=== PATIENT | female | born 1965 ===

== ENCOUNTER 2017-06-06 19:22 | Inpatient (IN) | payer MEDICAID, OTHER ==
[2017-06-06 20:16] LABS: BASO # 0.1 K/uL (0.0-0.2); BASO % 0.8 % (0.0-2.0); EOS # 0.3 K/uL (0.0-0.7); EOS % 3.4 % (0.0-4.0); HEMATOCRIT 45.2 % (34.0-47.0); LYMPH # 2.9 K/uL (1.0-4.3); LYMPH % 32.5 % (20.0-40.0); MEAN CELL VOLUME 87.8 fl (81.0-99.0); MEAN CORPUSCULAR HEMOGLOBIN 29.5 pg (27.0-31.0); MEAN CORPUSCULAR HGB CONC 33.5 g/dL (33.0-37.0); MEAN PLATELET VOLUME 8.8 fl (7.2-11.7); MONO # 0.5 K/uL (0.0-0.8); MONO % 5.5 % (0.0-10.0); NEUT # 5.2 K/uL (1.8-7.0); NEUT % 57.8 % (50.0-75.0); NRBC % 0.1 % (0.0-0.0)
[2017-06-06] MEDS ORDERED: Labetalol 5 mg/ml Inj 20ML IVP STA (20:19)
[2017-06-06 20:24] LABS: URINE BACTERIA RARE (<OCC); URINE BILIRUBIN NEGATIVE (NEGATIVE); URINE BLOOD SMALL (NEGATIVE); URINE COLOR STRAW (YELLOW); URINE GLUCOSE (UA) NEG (Normal); URINE KETONE NEGATIVE (NEGATIVE); URINE LEUKOCYTE ESTERASE SMALL Leu/uL (Negative); URINE PROTEIN 100 mg/dL (NEGATIVE); URINE UROBILINOGEN 0.2-1.0 mg/dL (0.2-1.0); WBC URINE 10 /hpf (0-5)
[2017-06-06 20:27] LABS: RBC URINE 8 /hpf (0-3)
[2017-06-06 20:35] LABS: ALB/GLOB RATIO 1.4 (1.0-2.1); ALKALINE PHOSPHATASE 100 U/L (38-126); ALT/SGPT 34 U/L (9-52); AST/SGOT 27 U/L (14-36); BILIRUBIN,TOTAL 0.4 mg/dl (0.2-1.3); BLOOD UREA NITROGEN 10 mg/dl (7-17); CARBON DIOXIDE 23 mmol/L (22-30); CHLORIDE 106 mmol/L (98-107); GFR AFRICAN-AMERICAN > 60; GLUCOSE,RANDOM 114 mg/dL (65-105); SODIUM 141 mmol/l (132-148); TOTAL PROTEIN 8.4 G/DL (6.3-8.2)
[2017-06-06 20:42] LABS: POTASSIUM 3.1 MMOL/L (3.6-5.0)
--- NOTE | 2017-06-06 21:38 | ED PDOC ---
HPI: Headache Time Seen by Provider: 06/06/17 19:34 Chief Complaint (Nursing): Headache Chief Complaint (Provider): Headache and chest pain History Per: Patient History/Exam Limitations: no limitations Additional Complaint(s): Patient is a 51 y/o female with a past medical history of hypertension and dyslipidemia presenting to the emergency department for a severe headache since yesterday and substernal chest pain that started this afternoon with associated generalized weakness and dizziness. Reports that she ran out of her antihypertensives two weeks ago which were from [facility]. Notes that [place] and has not received any medical care since. Denies associated visual changes, nausea, vomiting, cough, fever, or shortness of breath. PCP: none provided. Past Medical History Reviewed: Historical Data, Nursing Documentation, Vital Signs Vital Signs: Last Vital Signs Temp 98.3 F 06/06/17 19:24 Pulse 99 H 06/06/17 21:17 Resp 20 06/06/17 21:17 BP 161/101 H 06/06/17 21:17 Pulse Ox 100 06/06/17 21:17 - Medical History PMH: HTN - Surgical History Other surgeries: tubal ligation - Family History Family History: States: Unknown Family Hx - Social History Current smoker - smoking cessation education provided: No Ex-Smoker (has not smoked in the last 12 months): No Alcohol: None Drugs: Denies - Home Medications Home Medications: Ambulatory Orders Medication Instructions Recorded Aspirin 81 mg PO DAILY #30 tab.chew 06/07/17 Atorvastatin [Lipitor] 20 mg PO DAILY #30 tab 06/07/17 amLODIPine [Norvasc] 5 mg PO DAILY #30 tab 06/07/17 hydroCHLOROthiazide [Hydrodiuril] 25 mg PO DAILY #30 tab 06/07/17 - Allergies Allergies/Adverse Reactions: Allergies Allergy/AdvReac Type Severity Reaction Status Date / Time No Known Allergies Allergy Verified 06/06/17 19:27 Review of Systems ROS Statement: Except As Marked, All Systems Reviewed And Found Negative Constitutional: Negative for: Fever Eyes: Negative for: Vision Change Cardiovascular: Positive for: Chest Pain (substernal, x1 day) Respiratory: Negative for: Cough, Shortness of Breath Gastrointestinal: Negative for: Nausea, Vomiting Neurological: Positive for: Weakness (generalized), Headache (severe, x2 days), Dizziness Physical Exam - Reviewed Nursing Documentation Reviewed: Yes Vital Signs Reviewed: Yes - Physical Exam Appears: Positive for: Uncomfortable (and hypertensive) Head Exam: Positive for: ATRAUMATIC, NORMAL INSPECTION, NORMOCEPHALIC Skin: Positive for: Normal Color, Warm, Dry Eye Exam: Positive for: EOMI, Normal appearance, PERRL ENT: Positive for: Normal ENT Inspection Neck: Positive for: Normal, Painless ROM, Supple Cardiovascular/Chest: Positive for: Regular Rate, Rhythm. Negative for: Murmur Respiratory: Positive for: Normal Breath Sounds. Negative for: Accessory Muscle Use, Respiratory Distress Gastrointestinal/Abdominal: Positive for: Normal Exam, Soft. Negative for: Tenderness Back: Positive for: Normal Inspection Extremity: Positive for: Normal ROM. Negative for: Pedal Edema Neurologic/Psych: Positive for: Alert, Oriented (x3) - Laboratory Results Result Diagrams: 06/07/17 06:00 06/07/17 06:00 - ECG O2 Sat by Pulse Oximetry: 100 (RA) Pulse Ox Interpretation: Normal - Critical Care Total Time (In Min): 30 Medical Decision Making Medical Decision Making: Time: 20:41 Initial impression: Chest pain and headache in the setting of known hypertension with no compliance with medication. Initial plan: Head CT Scan without contrast EKG ED Urine Dipstick Chest X-Ray Trandate 20 mg IVP Heplock Insertion ED Observation Reevaluation 19:[address] scan reviewed and findings noted: Brain: Ventricles are normal in size and configuration. There is no midline shift. There are no intra-axial or extra-axial mass lesions or areas of hemorrhage. There are no abnormal fluid collections. Bryan-white differentiation is maintained. Ventricles: See above. Bones: Cranial vault is intact. Soft tissues: unremarkable Sinuses: There is no acute sinusitis. Ears and mastoids: Middle ears and mastoids are unremarkable Orbits: Orbital contents are unremarkable. IMPRESSION: No acute intracranial abnormality 20:[address] Martinez for observation status. Scribe Attestation: Documented by Shireen Philip, acting as a scribe for Jeremy Dale MD. Provider Scribe Attestation: All medical record entries made by the Scribe were at my direction and personally dictated by me. I have reviewed the chart and agree that the record accurately reflects my personal performance of the history, physical exam, medical decision making, and the department course for this patient. I have also personally directed, reviewed, and agree with the discharge instructions and disposition. ED OBSERVATION Date of observation admission: 06/06/17 Time of observation admission: 20:45 - Progress Note Progress Note: 06/06/17 22:15 Patient's condition remains stable. Disposition - Clinical Impression Clinical Impression: Chest pain, Headache, HTN (hypertension) - Patient ED Disposition Is Patient to be Admitted: Yes - Disposition Disposition Time: 21:00 Condition: FAIR - Pt Status Changed To: Hospital Disposition Of: Observation - POA Present On Arrival: None
--- NOTE | 2017-06-06 21:38 | CT ---
EXAM: CT Head Without Intravenous Contrast EXAM DATE/TIME: 06/06/2017 8:27 PM CLINICAL HISTORY: 51 years old, female; Pain; Headache; Headache not specified TECHNIQUE: Axial computed tomography images of the head/brain without intravenous contrast. All CT scans at this facility use one or more dose reduction techniques, viz.: automated exposure control; ma/kV adjustment per patient size (including targeted exams where dose is matched to indication; i.e. head); or iterative reconstruction technique. Coronal and sagittal reformatted images were created and reviewed. COMPARISON: There are no prior studies for comparison. FINDINGS: Brain: Ventricles are normal in size and configuration. There is no midline shift. There are no intra-axial or extra-axial mass lesions or areas of hemorrhage. There are no abnormal fluid collections. Bryan-white differentiation is maintained. Ventricles: See above. Bones: Cranial vault is intact. Soft tissues: unremarkable Sinuses: There is no acute sinusitis. Ears and mastoids: Middle ears and mastoids are unremarkable Orbits: Orbital contents are unremarkable. IMPRESSION: No acute intracranial abnormality
[2017-06-06] MEDS ORDERED: Potassium Chloride 20 mEq ER Tab PO ONE ×2 (22:00→22:10)
[2017-06-06] MEDS ORDERED: Labetalol 5 mg/ml Inj 20ML IVP PRN (22:02)
--- NOTE | 2017-06-06 22:37 | CP.PCM.HP ---
History of Present Illness - History of Present Illness History of Present Illness: CC: CP History in [place] via adult son HPI: 51 y/o female with MHx significant for HTN and HLD who comes in with CP. States the CP started yesterday. It is accompanied by some SOB, but no radiation or palpitations; Nothing makes pain better or worse. Patient has never had pain like this previously. Denies f/c/cough/n/v/d. States she does have some headaches. Patient notes she ran out of her BP medications about 2 weeks ago and has not been taking any since then. ROS: 14 systems reviewed, negative other than HPI MHx: HTN, HLD SHx: None Allergies: NKDA Medications: Per med rec Family Hx: Patient unable to provide any family Hx Social Hx: Lives with family, no EtOH, no tobacco Present on Admission - Present on Admission Any Indicators Present on Admission: No Past Patient History - Past Social History Smoking Status: Never Smoked - CARDIAC Hx Hypertension: Yes - PSYCHIATRIC Hx Substance Use: No - SURGICAL HISTORY Hx Hysterectomy: Yes Meds Allergies/Adverse Reactions: Allergies Allergy/AdvReac Type Severity Reaction Status Date / Time No Known Allergies Allergy Verified 06/06/17 19:27 Physical Exam - Constitutional Appears: No Acute Distress - Head Exam Head Exam: ATRAUMATIC, NORMOCEPHALIC - Eye Exam Eye Exam: EOMI, PERRL - ENT Exam ENT Exam: Mucous Membranes Moist - Neck Exam Neck exam: Positive for: Full Rom - Respiratory Exam Respiratory Exam: Clear to Auscultation Bilateral, NORMAL BREATHING PATTERN - Cardiovascular Exam Cardiovascular Exam: REGULAR RHYTHM, +S1, +S2 - GI/Abdominal Exam GI & Abdominal Exam: Normal Bowel Sounds, Soft - Extremities Exam Extremities exam: Positive for: full ROM, normal inspection - Neurological Exam Neurological exam: Alert, CN II-XII Intact, Oriented x3 - Psychiatric Exam Psychiatric exam: Normal Affect, Normal Mood - Skin Skin Exam: Dry, Warm Results - Vital Signs Recent Vital Signs: Last Vital Signs Temp 98.3 F 06/06/17 19:24 Pulse 76 06/06/17 22:05 Resp 20 06/06/17 22:05 BP 139/82 06/06/17 22:05 Pulse Ox 98 06/06/17 22:05 - Labs Result Diagrams: 06/06/17 19:59 06/06/17 19:59 Labs: Laboratory Results - last 24 hr 06/06/17 06/06/17 06/06/17 19:59 19:59 20:00 WBC 9.0 RBC 5.14 Hgb 15.1 Hct 45.2 MCV 87.8 MCH 29.5 MCHC 33.5 RDW 13.0 Plt Count 288 MPV 8.8 Neut % (Auto) 57.8 Lymph % (Auto) 32.5 [place] % (Auto) 5.5 Eos % (Auto) 3.4 Baso % (Auto) 0.8 Neut # 5.2 Lymph # 2.9 [place] # 0.5 Eos # 0.3 Baso # 0.1 Sodium 141 Potassium 3.1 L Chloride 106 Carbon Dioxide 23 Anion Gap 15 BUN 10 Creatinine 0.7 Est GFR ( Amer) > 60 Est GFR (Non-Af Amer) > 60 Random Glucose 114 H Calcium 10.0 Total Bilirubin 0.4 AST 27 ALT 34 Alkaline Phosphatase 100 Troponin I < 0.0120 Total Protein 8.4 H Albumin 4.8 Globulin 3.5 Albumin/Globulin Ratio 1.4 Urine Color Straw Urine Clarity Clear Urine pH 7.0 Ur Specific [place] 1.006 Urine Protein 100 Urine Glucose (UA) Neg Urine Ketones Negative Urine Blood Small Urine Nitrate Negative Urine Bilirubin Negative Urine Urobilinogen 0.2-1.0 Ur Leukocyte Esterase Small Urine RBC (Auto) 8 H Urine Microscopic WBC 10 H Ur Squamous Epith Cells 3 Urine Bacteria Rare - EKG Data EKG Interpreted by: Myself EKG shows normal: Sinus rhythm - EKG Data EKG comments: ?LAD, ?LVT, nonspec TW abnormalities - Imaging and Cardiology Chest x-ray Status: Image reviewed by me (unremarkable) CT scan - head Status: Image reviewed by me (no acute findings), Report reviewed by me Assessment & Plan (1) Chest pain Assessment and Plan: 51 y/o female with HTN and HLD p/w CP and elevated BP in setting of not taking BP medications. 1) CP/HTN/HLD -Tele obs -Serial trops -AM EKG -ASA 325 daily, SLNG PRN -resume home BP and cholesterol medications -Consider Echo and cardiology consult if persistent symptoms or abnormal lab workup 2) Hypo-K -Replete K, check AM labs 3) DVT PPx -- SCDs Status: Acute (2) HTN (hypertension) Status: Acute (3) Hypokalemia Status: Acute (4) DVT prophylaxis Status: Acute
[2017-06-07 07:50] LABS: HEMATOCRIT 43.3 % (34.0-47.0); MEAN CELL VOLUME 88.7 fl (81.0-99.0); MEAN CORPUSCULAR HGB CONC 33.8 g/dL (33.0-37.0); RED CELL DISTRIBUTION WIDTH 13.5 % (11.5-14.5); WHITE BLOOD COUNT 6.6 K/uL (4.8-10.8)
--- NOTE | 2017-06-07 08:22 | CP.PCM.DIS ---
Provider - Provider Date of Admission: 06/07/17 00:01 Attending physician: Margot Martinez MD Hospital Course - Lab Results Lab Results: Most Recent Lab Values WBC 6.6 K/uL (4.8-10.8) 06/07/17 06:00 RBC 4.88 Mil/uL (3.80-5.20) 06/07/17 06:00 Hgb 14.6 g/dL (12.0-16.0) 06/07/17 06:00 Hct 43.3 % (34.0-47.0) 06/07/17 06:00 MCV 88.7 fl (81.0-99.0) 06/07/17 06:00 MCH 30.0 pg (27.0-31.0) 06/07/17 06:00 MCHC 33.8 g/dL (33.0-37.0) 06/07/17 06:00 RDW 13.5 % (11.5-14.5) 06/07/17 06:00 Plt Count 285 K/uL (130-400) 06/07/17 06:00 MPV 8.8 fl (7.2-11.7) 06/06/17 19:59 Neut % (Auto) 57.8 % (50.0-75.0) 06/06/17 19:59 Lymph % (Auto) 32.5 % (20.0-40.0) 06/06/17 19:59 [place] % (Auto) 5.5 % (0.0-10.0) 06/06/17 19:59 Eos % (Auto) 3.4 % (0.0-4.0) 06/06/17 19:59 Baso % (Auto) 0.8 % (0.0-2.0) 06/06/17 19:59 Neut # 5.2 K/uL (1.8-7.0) 06/06/17 19:59 Lymph # 2.9 K/uL (1.0-4.3) 06/06/17 19:59 [place] # 0.5 K/uL (0.0-0.8) 06/06/17 19:59 Eos # 0.3 K/uL (0.0-0.7) 06/06/17 19:59 Baso # 0.1 K/uL (0.0-0.2) 06/06/17 19:59 Sodium 141 mmol/l (132-148) 06/06/17 19:59 Potassium 3.1 MMOL/L (3.6-5.0) L 06/06/17 19:59 Chloride 106 mmol/L (98-107) 06/06/17 19:59 Carbon Dioxide 23 mmol/L (22-30) 06/06/17 19:59 Anion Gap 15 (10-20) 06/06/17 19:59 BUN 10 mg/dl (7-17) 06/06/17 19:59 Creatinine 0.7 mg/dL (0.7-1.2) 06/06/17 19:59 Est GFR ( Amer) > 60 06/06/17 19:59 Est GFR (Non-Af Amer) > 60 06/06/17 19:59 Random Glucose 114 mg/dL (65-105) H 06/06/17 19:59 Calcium 10.0 mg/dL (8.4-10.2) 06/06/17 19:59 Total Bilirubin 0.4 mg/dl (0.2-1.3) 06/06/17 19:59 AST 27 U/L (14-36) 06/06/17 19:59 ALT 34 U/L (9-52) 06/06/17 19:59 Alkaline Phosphatase 100 U/L (38-126) 06/06/17 19:59 Troponin I < 0.0120 ng/mL (0.00-0.120) 06/06/17 19:59 Total Protein 8.4 G/DL (6.3-8.2) H 06/06/17 19:59 Albumin 4.8 g/dL (3.5-5.0) 06/06/17 19:59 Globulin 3.5 gm/dL (2.2-3.9) 06/06/17 19:59 Albumin/Globulin Ratio 1.4 (1.0-2.1) 06/06/17 19:59 Urine Color Straw (YELLOW) 06/06/17 20:00 Urine Clarity Clear (Clear) 06/06/17 20:00 Urine pH 7.0 (5.0-8.0) 06/06/17 20:00 Ur Specific [place] 1.006 (1.003-1.030) 06/06/17 20:00 Urine Protein 100 mg/dL (NEGATIVE) 06/06/17 20:00 Urine Glucose (UA) Neg mg/dL (Normal) 06/06/17 20:00 Urine Ketones Negative mg/dL (NEGATIVE) 06/06/17 20:00 Urine Blood Small (NEGATIVE) 06/06/17 20:00 Urine Nitrate Negative (NEGATIVE) 06/06/17 20:00 Urine Bilirubin Negative (NEGATIVE) 06/06/17 20:00 Urine Urobilinogen 0.2-1.0 mg/dL (0.2-1.0) 06/06/17 20:00 Ur Leukocyte Esterase Small Margie/uL (Negative) 06/06/17 20:00 Urine RBC (Auto) 8 /hpf (0-3) H 06/06/17 20:00 Urine Microscopic WBC 10 /hpf (0-5) H 06/06/17 20:00 Ur Squamous Epith Cells 3 /hpf (0-5) 06/06/17 20:00 Urine Bacteria Rare (<OCC) 06/06/17 20:00 - Hospital Course Hospital Course: 51 y/o female with MHx significant for HTN and HLD who comes in with CP. States the CP started yesterday. It is accompanied by some SOB, but no radiation or palpitations; Nothing makes pain better or worse. Patient has never had pain like this previously. Denies f/c/cough/n/v/d. States she does have some headaches. Patient notes she ran out of her BP medications about 2 weeks ago and has not been taking any since then. 1) CP/HTN/HLD -Tele obs -Serial trops -AM EKG -ASA 325 daily, SLNG PRN -resume home BP and cholesterol medications -Consider Echo and cardiology consult if persistent symptoms or abnormal lab workup 2) Hypo-K -Replete K, check AM labs 3) DVT PPx -- SCDs Status: Acute Discharge Exam - Head Exam Head Exam: ATRAUMATIC, NORMAL INSPECTION, NORMOCEPHALIC Discharge Plan - Follow Up Plan Condition: FAIR Disposition: HOME/ ROUTINE
--- NOTE | 2017-06-07 08:37 | RAD ---
PROCEDURE: CHEST RADIOGRAPH, 1 VIEW HISTORY: admit COMPARISON: None FINDINGS: LUNGS: The lungs are clear. PLEURA: No pneumothorax or pleural fluid seen. CARDIOVASCULAR: Normal. OSSEOUS STRUCTURES: No significant abnormalities. VISUALIZED UPPER ABDOMEN: Normal. OTHER FINDINGS: None. IMPRESSION: No acute findings.
[2017-06-07 09:04] LABS: BLOOD UREA NITROGEN 10 mg/dl (7-17); CALCIUM 9.7 mg/dL (8.4-10.2); CARBON DIOXIDE 26 mmol/L (22-30); CHLORIDE 106 mmol/L (98-107); GFR AFRICAN-AMERICAN > 60; GLUCOSE,RANDOM 104 mg/dL (65-105); POTASSIUM 3.5 MMOL/L (3.6-5.0); SODIUM 144 mmol/l (132-148)
[2017-06-07 09:32] LABS: CHOLESTEROL 188 mg/dL (0-199)
[2017-06-07] MEDS ORDERED: Potassium Chloride 10 mEq ER Tab PO ONE (11:30)
[2017-06-07] MEDS: Enoxaparin 80 mg Syringe SC SCH ×2 (14:09→21:27)
--- NOTE | 2017-06-07 15:50 | CP.PCM.PN ---
Subjective - Date & Time of Evaluation Date of Evaluation: 06/07/17 Time of Evaluation: 10:00 - Subjective Subjective: Patient seen and examined bedside. Feeling better. denies any CP or SOB.Bp better controlled 136/89 , afebrile trop x 2 negative EKG with new T wave inversion to V3 V4 V5-V6 Objective - Vital Signs/Intake and Output Vital Signs (last 24 hours): Temp Pulse Resp BP Pulse Ox 97.8 F 71 18 158/118 H 95 06/07/17 13:00 06/07/17 13:00 06/07/17 13:00 06/07/17 13:00 06/07/17 13:00 - Medications Medications: Current Medications Aspirin (Aspirin) 325 mg PO DAILY [facility] Last Admin: 06/07/17 09:44 Dose: 325 mg Aspirin (Ecotrin) 81 mg PO DAILY [facility] Atorvastatin Calcium (Lipitor) 40 mg PO DAILY [facility] Enoxaparin Sodium (Lovenox) 80 mg SC Q12 [facility] PRN Reason: Protocol Last Admin: 06/07/17 14:09 Dose: 80 mg Hydrochlorothiazide (Hydrodiuril) 25 mg PO DAILY [facility] Last Admin: 06/07/17 09:41 Dose: 25 mg Metoprolol Tartrate (Lopressor) 50 mg PO Q12 [facility] Last Admin: 06/07/17 13:00 Dose: 50 mg Nitroglycerin (Nitrostat Sl Tab) 0.4 mg SL Q5M PRN PRN Reason: chest pain - Labs Labs: 06/07/17 06:00 06/07/17 06:00 - Constitutional Appears: Non-toxic, No Acute Distress - Head Exam Head Exam: ATRAUMATIC, NORMAL INSPECTION, NORMOCEPHALIC - Eye Exam Eye Exam: EOMI, Normal appearance, PERRL Pupil Exam: NORMAL ACCOMODATION - ENT Exam ENT Exam: Mucous Membranes Moist, Normal Exam - Neck Exam Neck Exam: Full ROM, Normal Inspection - Respiratory Exam Respiratory Exam: Clear to Ausculation Bilateral, NORMAL BREATHING PATTERN. absent: Rales, Rhonchi, Wheezes - Cardiovascular Exam Cardiovascular Exam: REGULAR RHYTHM, RRR, +S1, +S2. absent: JVD - GI/Abdominal Exam GI & Abdominal Exam: Soft, Normal Bowel Sounds. absent: Distended, Guarding, Tenderness, Rebound - Rectal Exam Rectal Exam: Deferred - Extremities Exam Extremities Exam: Full ROM, Normal Capillary Refill, Normal Inspection. absent : Calf Tenderness, Pedal Edema - Back Exam Back Exam: NORMAL INSPECTION - Neurological Exam Neurological Exam: Alert, Awake, CN II-XII Intact, Oriented x3 - Psychiatric Exam Psychiatric exam: Normal Affect, Normal Mood - Skin Skin Exam: Dry, Intact, Normal Color, Warm Assessment and Plan - Assessment and Plan (Free Text) Assessment: 51 y/o female with MHx significant for HTN and HLD came in with CP. Patient had run out of her BP meds .Her CP started yesterday, left side, pressure like, is accompanied by some SOB, but no radiation or palpitations. 1. Chest pain r/o ACS continue tele monitoring patient is chest pain free at present trop x 2 negative EKG showed new T wave inversion on lateral leads f/u echo cardiology cosnjulted continue ASA, statin and Beta noah 2.Hypertension uncontrolled not compliant with medications Started HCTZ and Metoprolol 3. Hypo-K replaced check AM labs 4. DVT PPx SCDs
--- NOTE | 2017-06-07 23:27 | CON ---
REASON FOR CONSULTATION: Chest pain. HISTORY OF PRESENT ILLNESS: The history was obtained by a gl accountant. The patient is a 51-year-old female who has history of hypertension, presents because of retrosternal chest pain that is heaviness in nature. The patient is unaware of any history heart attack in the past. SOCIAL HISTORY: The patient is a nonsmoker. MEDICATIONS: Aspirin 325 mg once a day, hydrochlorothiazide 25 mg once a day, Lipitor 10 mg once a day, Norvasc 5 mg once a day, labetalol 20 mg q.6 hours p.r.n. REVIEW OF SYSTEMS: No nausea or vomiting. No fever or chills. PHYSICAL EXAMINATION: GENERAL: The patient is a middle aged female who does not appear to be in any distress. VITAL SIGNS: Blood pressure 136/89, heart rate 62, temperature 97.9, and respirations 18. HEENT: Normocephalic. NECK: No JVD. CHEST: Clear. HEART: S1 and S2 regular. ABDOMEN: Soft. EXTREMITIES: No edema and no calf tenderness. LABORATORY DATA: CBC is entirely within normal limit. SMA-7 is within normal limits except for potassium of 3.5. Two sets of troponins are negative. Lipid profile is within normal limits. EKG initially revealed normal sinus rhythm. Today's EKG revealed sinus rhythm with anterior ischemic T-wave changes. ASSESSMENT: 1. Chest pain, consider underlying coronary artery disease. 2. Hypertension. 3. Mild hypokalemia. RECOMMENDATIONS: Discontinue Norvasc and start Lopressor at 50 mg twice a day, change aspirin to 81 mg once a day, increase Lipitor to 40 mg once a day, start K-Dur 20 mEq once a day, therapeutic subcutaneous Lovenox, and the patient will be scheduled for cardiac catheterization on Friday at [facility] hopefully if the hospital accepts the patient because of her insurance status as it is always a case in my experience with [facility]. Donaldo Navarro MD
[2017-06-08] MEDS: Enoxaparin 80 mg Syringe SC SCH ×2 (01:09→13:14)
[2017-06-08 07:12] LABS: BLOOD UREA NITROGEN 18 mg/dl (7-17); CALCIUM 10.3 mg/dL (8.4-10.2); CARBON DIOXIDE 29 mmol/L (22-30); CHLORIDE 103 mmol/L (98-107); GFR AFRICAN-AMERICAN > 60; GLUCOSE,RANDOM 102 mg/dL (65-105); POTASSIUM 4.1 MMOL/L (3.6-5.0); SODIUM 141 mmol/l (132-148)
--- NOTE | 2017-06-08 10:41 | CP.PCM.PN ---
Subjective - Date & Time of Evaluation Date of Evaluation: 06/08/17 Time of Evaluation: 08:00 - Subjective Subjective: Patient seen and examined bedside.Feeling well. Hemodynamically stable, afebrile. No acute issues overnight Objective - Vital Signs/Intake and Output Vital Signs (last 24 hours): Temp Pulse Resp BP Pulse Ox 97.4 F L 53 L 18 126/82 98 06/08/17 08:12 06/08/17 08:12 06/08/17 08:12 06/08/17 08:12 06/08/17 08:12 - Medications Medications: Current Medications Aspirin (Aspirin) 325 mg PO DAILY [facility] Last Admin: 06/07/17 09:44 Dose: 325 mg Aspirin (Ecotrin) 81 mg PO DAILY [facility] Last Admin: 06/08/17 08:17 Dose: 81 mg Atorvastatin Calcium (Lipitor) 40 mg PO DAILY [facility] Last Admin: 06/08/17 08:17 Dose: 40 mg Enoxaparin Sodium (Lovenox) 80 mg SC Q12@0200,1400 [facility] PRN Reason: Protocol Last Admin: 06/08/17 01:09 Dose: 80 mg Hydrochlorothiazide (Hydrodiuril) 25 mg PO DAILY [facility] Last Admin: 06/08/17 08:17 Dose: 25 mg Metoprolol Tartrate (Lopressor) 50 mg PO Q12@0100,1300 [facility] Last Admin: 06/08/17 01:06 Dose: 50 mg Nitroglycerin (Nitrostat Sl Tab) 0.4 mg SL Q5M PRN PRN Reason: chest pain - Labs Labs: 06/07/17 06:00 06/08/17 05:30 - Constitutional Appears: Non-toxic, No Acute Distress - Head Exam Head Exam: ATRAUMATIC, NORMAL INSPECTION, NORMOCEPHALIC - Eye Exam Eye Exam: EOMI, Normal appearance, PERRL Pupil Exam: NORMAL ACCOMODATION - ENT Exam ENT Exam: Mucous Membranes Moist, Normal Exam - Neck Exam Neck Exam: Full ROM, Normal Inspection - Respiratory Exam Respiratory Exam: Clear to Ausculation Bilateral, NORMAL BREATHING PATTERN. absent: Rales, Rhonchi, Wheezes - Cardiovascular Exam Cardiovascular Exam: REGULAR RHYTHM, RRR, +S1, +S2. absent: JVD - GI/Abdominal Exam GI & Abdominal Exam: Normal Bowel Sounds. absent: Distended, Guarding, Tenderness, Rebound - Rectal Exam Rectal Exam: Deferred - Extremities Exam Extremities Exam: Full ROM, Normal Capillary Refill, Normal Inspection. absent : Calf Tenderness, Pedal Edema - Back Exam Back Exam: NORMAL INSPECTION - Neurological Exam Neurological Exam: Alert, Awake, CN II-XII Intact, Normal Gait, Oriented x3 - Psychiatric Exam Psychiatric exam: Normal Affect, Normal Mood - Skin Skin Exam: Dry, Intact, Normal Color, Warm Assessment and Plan - Assessment and Plan (Free Text) Assessment: 51 y/o female with PMHx significant for HTN and HLD came in with CP. Patient had run out of her BP meds .Her CP started the day before presentation to the left side, pressure like,is accompanied by some SOB, but no radiation or palpitations.In Er her Bp wsa found to be 188 / 140 patient admitted to telemetry for close monitoring and started on ASA and BP meds. here troponins were negative but her EKG showed active T wave inversion in lateral leads. cardiology consulted and planning to schedule patient for cardiac cath 1. Chest pain r/o ACS continue tele monitoring patient is chest pain free at present trop x 3 negative EKG showed new T wave inversion on lateral leads f/u echo report cardiology consulted continue ASA, statin, lovenox therapeutic and Beta noah 2.Hypertension emergency BP 180/140 in presentation uncontrolled not compliant with medications Started HCTZ and Metoprolol 3. Hypo-K replaced check AM labs 4. DVT PPx SCDs lovenox
--- NOTE | 2017-06-08 22:11 | PN ---
DATE: SUBJECTIVE: The patient denied any chest pain. PHYSICAL EXAMINATION: VITAL SIGNS: Blood pressure 112/77, heart rate 60, temperature 98.2 and respirations 14. HEENT: Normocephalic. NECK: No JVD. CHEST: Clear. HEART: S1 and S2 regular. EXTREMITIES: No edema. LABORATORY DATA: SMA-7 is within normal limits except for BUN of 18. Calcium is elevated at 10.3. Three sets of troponin are negative. ASSESSMENT: 1. Chest pain with anterior ischemic ST-T wave changes. 2. Hypertension. 3. Mild hyperkalemia. RECOMMENDATION: Continue aspirin, Lipitor, Lopressor, therapeutic subcutaneous Lovenox. Discontinue hydrochlorothiazide. The patient will be scheduled for cardiac catheterization tomorrow. The place and time will depend on the availability when cath labs open tomorrow morning. Donaldo Navarro MD
[2017-06-09] MEDS: Enoxaparin 80 mg Syringe SC SCH ×2 (01:26→14:51)
[2017-06-09 06:19] LABS: MEAN CELL VOLUME 89.4 fl (81.0-99.0); MEAN CORPUSCULAR HEMOGLOBIN 29.3 pg (27.0-31.0); MEAN CORPUSCULAR HGB CONC 32.8 g/dL (33.0-37.0); RED CELL DISTRIBUTION WIDTH 13.5 % (11.5-14.5); WHITE BLOOD COUNT 7.3 K/uL (4.8-10.8)
[2017-06-09 06:32] LABS: BLOOD UREA NITROGEN 22 mg/dl (7-17); CALCIUM 9.8 mg/dL (8.4-10.2); CARBON DIOXIDE 25 mmol/L (22-30); CHLORIDE 105 mmol/L (98-107); GFR AFRICAN-AMERICAN > 60; GLUCOSE,RANDOM 114 mg/dL (65-105); POTASSIUM 3.4 MMOL/L (3.6-5.0); SODIUM 141 mmol/l (132-148)
[2017-06-09] MEDS ORDERED: Potassium CL 10 MEQ/50 ML 50 ML IVPB ONE (08:16)
--- NOTE | 2017-06-09 10:18 | CARD ---
APPROVED REPORT EXAM: Two-dimensional and M-mode echocardiogram with Doppler and color Doppler. Other Information Quality : GoodRhythm : NSR INDICATION Chest Pain 2D DIMENSIONS IVSd1.12 (0.7-1.1cm)LVDd4.75 (3.9-5.9cm) LVOT Diameter2.24 (1.8-2.4cm)PWd0.98 (0.7-1.1cm) IVSs1.35 (0.8-1.2cm)LVDs2.82 (2.5-4.0cm) FS (%) 40.6 %PWs1.25 (0.8-1.2cm) M-Mode DIMENSIONS Left Atrium (MM)4.03 (2.5-4.0cm)IVSd1.00 (0.7-1.1cm) Aortic Root3.09 (2.2-3.7cm)LVDd5.32 (4.0-5.6cm) Aortic Cusp Exc.2.12 (1.5-2.0cm)PWd1.15 (0.7-1.1cm) IVSs1.47 cmFS (%) 39 % LVDs3.24 (2.0-3.8cm)PWs1.68 cm Mitral Valve MV E Jkmyrogj58.0cm/sMV DECEL [id number] A Gsdbrtlo26.7cm/s MV [id number]/A ratio0.7MVA (PHT)1.71cm2 TDI Lateral E' Peak V8.80cm/sMedial E' Peak V4.81cm/sE/Lateral E'4.1 E/Medial E'7.5 Pulmonary Valve PV Peak Ugqqqutd40.8cm/s LEFT VENTRICLE The left ventricle is normal size. There is normal left ventricular wall thickness. The left ventricular function is normal. The left ventricular ejection fraction is 60% There is normal LV segmental wall motion. The left ventricular diastolic function is normal. No left ventricle thrombus noted on this study. There is no ventricular septal defect visualized. There is no left ventricular aneurysm. There is no mass noted in the left ventricle. RIGHT VENTRICLE The right ventricle is normal size. There is normal right ventricular wall thickness. The right ventricular systolic function is normal. ATRIA The left atrium size is normal. The right atrium size is normal. The interatrial septum is intact with no evidence for an atrial septal defect. AORTIC VALVE The aortic valve is normal in structure and function. No aortic regurgitation is present. There is no aortic valvular stenosis. There is no aortic valvular vegetation. MITRAL VALVE The mitral valve is normal in structure and function. There is no evidence of mitral valve prolapse. There is no mitral valve stenosis. There is no mitral valve regurgitation noted. TRICUSPID VALVE The tricuspid valve is normal in structure and function. There is no tricuspid valve regurgitation noted. There is no tricuspid valve prolapse or vegetation. There is no tricuspid valve stenosis. PULMONIC VALVE The pulmonary valve is normal in structure and function. There is no pulmonic valvular regurgitation. There is no pulmonic valvular stenosis. GREAT VESSELS The aortic root is normal in size. The ascending aorta is normal in size. The IVC is normal in size and collapses >50% with inspiration. PERICARDIAL EFFUSION The pericardium appears normal. There is no pleural effusion. <Conclusion> Normal Echocardiogram
--- NOTE | 2017-06-09 11:00 | CARD ---
APPROVED REPORT EKG Measurement Heart [id number] <Conclusion> Normal sinus rhythm Left axis deviation Incomplete right bundle branch block Voltage criteria for left ventricular hypertrophy Cannot rule out Septal infarct, age undetermined ST & T wave abnormality, consider inferior ischemia ST & T wave abnormality, consider anterolateral ischemia Abnormal ECG
--- NOTE | 2017-06-09 11:09 | CARD ---
APPROVED REPORT EKG Measurement Heart [id number] <Conclusion> Normal sinus rhythm Incomplete right bundle branch block Voltage criteria for left ventricular hypertrophy ST & T wave abnormality, consider inferior ischemia ST & T wave abnormality, consider anterolateral ischemia Abnormal ECG
--- NOTE | 2017-06-09 11:12 | CARD ---
APPROVED REPORT EKG Measurement Heart [id number] <Conclusion> Normal sinus rhythm Left axis deviation Voltage criteria for left ventricular hypertrophy Nonspecific ST and T wave abnormality Abnormal ECG
--- NOTE | 2017-06-09 11:29 | CP.PCM.PN ---
Subjective - Date & Time of Evaluation Date of Evaluation: 06/09/17 Time of Evaluation: 08:30 - Subjective Subjective: Patient seen and examined bedside. Feeling well. Denies any CP , SOB, palpitations, AGUAYO. Hemodynamically stable, Bp controlled afebrile Tele monitor with no arrythmias Objective - Vital Signs/Intake and Output Vital Signs (last 24 hours): Temp Pulse Resp BP Pulse Ox 98.1 F 58 L 18 127/80 98 06/09/17 08:09 06/09/17 08:09 06/09/17 08:09 06/09/17 08:09 06/09/17 08:09 - Medications Medications: Current Medications Aspirin (Ecotrin) 81 mg PO DAILY [facility] Last Admin: 06/09/17 09:24 Dose: 81 mg Atorvastatin Calcium (Lipitor) 40 mg PO DAILY [facility] Last Admin: 06/09/17 09:24 Dose: 40 mg Enoxaparin Sodium (Lovenox) 80 mg SC Q12@0200,1400 [facility] PRN Reason: Protocol Last Admin: 06/09/17 01:26 Dose: 80 mg Metoprolol Tartrate (Lopressor) 50 mg PO Q12@0100,1300 [facility] Last Admin: 06/09/17 01:26 Dose: 50 mg Nitroglycerin (Nitrostat Sl Tab) 0.4 mg SL Q5M PRN PRN Reason: chest pain - Labs Labs: 06/09/17 05:30 06/09/17 05:30 PT 11.4 Seconds (9.8-13.1) 06/09/17 05:30 INR 1.1 (0.9-1.2) 06/09/17 05:30 - Constitutional Appears: Non-toxic, No Acute Distress - Head Exam Head Exam: ATRAUMATIC, NORMAL INSPECTION, NORMOCEPHALIC - Eye Exam Eye Exam: EOMI, Normal appearance, PERRL Pupil Exam: NORMAL ACCOMODATION - ENT Exam ENT Exam: Mucous Membranes Moist, Normal Exam - Neck Exam Neck Exam: Full ROM, Normal Inspection - Respiratory Exam Respiratory Exam: Clear to Ausculation Bilateral, NORMAL BREATHING PATTERN. absent: Rales, Rhonchi, Wheezes - Cardiovascular Exam Cardiovascular Exam: REGULAR RHYTHM, RRR, +S1, +S2. absent: JVD - GI/Abdominal Exam GI & Abdominal Exam: Soft, Normal Bowel Sounds. absent: Distended, Guarding, Tenderness, Rebound - Rectal Exam Rectal Exam: Deferred - Extremities Exam Extremities Exam: Full ROM, Normal Capillary Refill, Normal Inspection. absent : Pedal Edema - Back Exam Back Exam: NORMAL INSPECTION - Neurological Exam Neurological Exam: Alert, Awake, CN II-XII Intact, Oriented x3 - Psychiatric Exam Psychiatric exam: Normal Affect, Normal Mood - Skin Skin Exam: Dry, Intact, Normal Color, Warm Assessment and Plan - Assessment and Plan (Free Text) Assessment: 51 y/o female with PMHx significant for HTN and HLD came in with CP. Patient had run out of her BP meds .Her CP started the day before presentation to the left side, pressure like,accompanied by some SOB, but no radiation or palpitations.In ER her BP was found to be 188 / 140 Patient admitted to telemetry for close monitoring and started on ASA and BP meds.Troponins were negative but her EKG showed active T wave inversion in lateral leads. Cardiology consulted and planning to schedule patient for cardiac cath 1. Chest pain r/o ACS continue tele monitoring patient is chest pain free at present trop x 3 negative EKG showed new T wave inversion on lateral leads echo was normal cardiology consulted continue ASA, statin, lovenox therapeutic and Beta noah patient waiting to be scheduled for cardiac cath by cardiology 2.Hypertension emergency BP 180/140 in presentation now BP is controlled not compliant with medications Started HCTZ and Metoprolol 3. Hypo-K replaced and resolved 4. DVT PPx SCDs lovenox
--- NOTE | 2017-06-09 21:31 | PN ---
SUBJECTIVE: The patient denies any chest pain. No reports of ventricular arrhythmia. PHYSICAL EXAMINATION: VITAL SIGNS: Blood pressure 112/71, heart rate 56, temperature 98, respirations 18. HEENT: Normocephalic. CHEST: Clear. HEART: S1 and S2 regular. EXTREMITIES: No edema. LABORATORY DATA: SMA-7: Sodium 141, potassium is 3.4, chloride 105, CO2 of 25, glucose 114, BUN 22, creatinine 0.9. White count, hemoglobin, hematocrit, and platelet counts are within normal limits. Official echocardiographic study reports a normal echocardiogram. ASSESSMENT: 1. Chest pain with acute ischemic ST-T wave changes. 2. Hypertension. RECOMMENDATIONS: Continue aspirin, Lipitor, Lopressor, and subcutaneous Lovenox. The patient is scheduled for cardiac catheterization at the [facility] tomorrow. Donaldo Navarro MD
[2017-06-10] MEDS: Enoxaparin 80 mg Syringe SC SCH (01:33)
--- NOTE | 2017-06-10 14:06 | CP.PCM.PN ---
Subjective - Date & Time of Evaluation Date of Evaluation: 06/10/17 Time of Evaluation: 09:00 - Subjective Subjective: Denies CP at present no SOB no palpitation no abd pain no fever Plan for cardiac cath at [facility] Objective - Vital Signs/Intake and Output Vital Signs (last 24 hours): Temp Pulse Resp BP Pulse Ox 98.4 F 60 18 128/86 97 06/10/17 08:16 06/10/17 08:16 06/10/17 08:16 06/10/17 08:16 06/10/17 08:16 - Medications Medications: Current Medications Aspirin (Ecotrin) 81 mg PO DAILY [facility] Last Admin: 06/10/17 09:09 Dose: 81 mg Atorvastatin Calcium (Lipitor) 40 mg PO DAILY [facility] Last Admin: 06/10/17 09:09 Dose: 40 mg Enoxaparin Sodium (Lovenox) 80 mg SC Q12@0200,1400 [facility] PRN Reason: Protocol Last Admin: 06/10/17 01:33 Dose: 80 mg Metoprolol Tartrate (Lopressor) 50 mg PO Q12@0100,1300 [facility] Last Admin: 06/10/17 00:33 Dose: 50 mg Nitroglycerin (Nitrostat Sl Tab) 0.4 mg SL Q5M PRN PRN Reason: chest pain - Labs Labs: 06/09/17 05:30 06/09/17 05:30 PT 11.4 Seconds (9.8-13.1) 06/09/17 05:30 INR 1.1 (0.9-1.2) 06/09/17 05:30 - Constitutional Appears: No Acute Distress - Head Exam Head Exam: ATRAUMATIC, NORMAL INSPECTION, NORMOCEPHALIC - Eye Exam Eye Exam: EOMI, Normal appearance, PERRL Pupil Exam: NORMAL ACCOMODATION - ENT Exam ENT Exam: Mucous Membranes Moist, Normal External Ear Exam - Neck Exam Neck Exam: Full ROM. absent: Meningismus - Respiratory Exam Respiratory Exam: NORMAL BREATHING PATTERN. absent: Respiratory Distress - Cardiovascular Exam Cardiovascular Exam: REGULAR RHYTHM, +S1, +S2 - GI/Abdominal Exam GI & Abdominal Exam: Soft, Normal Bowel Sounds. absent: Tenderness - Extremities Exam Extremities Exam: Full ROM, Normal Capillary Refill, Normal Inspection. absent : Calf Tenderness, Pedal Edema - Back Exam Back Exam: Full ROM, NORMAL INSPECTION. absent: CVA tenderness (L), CVA tenderness (R) - Neurological Exam Neurological Exam: Alert, Awake, CN II-XII Intact, Oriented x3, Reflexes Normal Neuro motor strength exam: Left Upper Extremity: 5, Right Upper Extremity: 5, Left Lower Extremity: 5, Right Lower Extremity: 5 - Psychiatric Exam Psychiatric exam: Normal Affect, Normal Mood - Skin Skin Exam: Dry, Normal Color, Warm Assessment and Plan - Assessment and Plan (Free Text) Assessment: 51 y/o female with PMHx significant for HTN and HLD came in with CP. Patient had run out of her BP meds . Her CP started the day before presentation to the left side, pressure like,accompanied by some SOB, but no radiation or palpitations. In ER her BP was found to be 188 / 140. Patient admitted to telemetry for close monitoring and started on ASA and BP meds. Troponins were negative but her EKG showed active T wave inversion in lateral leads. Cardiology consulted and plan for cardiac cath today. 1. Chest pain r/o ACS continue tele monitoring patient is chest pain free at present trop x 3 negative EKG showed new T wave inversion on lateral leads echo was normal cardiology consulted continue ASA, statin, lovenox therapeutic and Beta noah Cardiology - Dr Navarro - Plan for Cardiac cath at [facility] today 2.Hypertension emergency BP 180/140 in presentation now BP is controlled not compliant with medications Started HCTZ and Metoprolol 3. Hypo-K replaced and resolved 4. DVT PPx SCDs lovenox
[2017-06-10 20:15] LABS: HEMATOCRIT 44.4 % (34.0-47.0); MEAN CELL VOLUME 88.4 fl (81.0-99.0); MEAN CORPUSCULAR HEMOGLOBIN 29.6 pg (27.0-31.0); MEAN CORPUSCULAR HGB CONC 33.4 g/dL (33.0-37.0); RED CELL DISTRIBUTION WIDTH 13.3 % (11.5-14.5); WHITE BLOOD COUNT 10.7 K/uL (4.8-10.8)
--- NOTE | 2017-06-10 22:30 | PN ---
SUBJECTIVE: The patient underwent cardiac catheterization in [facility] and is still at [facility] as of the time of this dictation. The cardiac catheterization revealed normal and normal left ventricular systolic function. Following the completion of the cardiac cath and at the time of the sheath removal, the patient reported to me to have developed right groin hematoma. I evaluated the patient at that time and recommended continued manual pressure and perform ultrasound on the right groin after the completion of the manual pressure. The coronary findings were discussed with Dr. Zaldivar, the hospitalist and we are currently awaiting the ultrasound results of the right lower extremity. Donaldo Navarro MD
[2017-06-11 06:28] LABS: HEMATOCRIT 42.7 % (34.0-47.0); MEAN CELL VOLUME 89.2 fl (81.0-99.0); MEAN CORPUSCULAR HEMOGLOBIN 29.3 pg (27.0-31.0); MEAN CORPUSCULAR HGB CONC 32.8 g/dL (33.0-37.0); RED CELL DISTRIBUTION WIDTH 13.8 % (11.5-14.5); WHITE BLOOD COUNT 15.9 K/uL (4.8-10.8)
[2017-06-11 06:46] LABS: BLOOD UREA NITROGEN 13 mg/dl (7-17); CALCIUM 9.9 mg/dL (8.4-10.2); CARBON DIOXIDE 24 mmol/L (22-30); CHLORIDE 106 mmol/L (98-107); GFR AFRICAN-AMERICAN > 60; GLUCOSE,RANDOM 122 mg/dL (65-105); SODIUM 141 mmol/l (132-148)
--- NOTE | 2017-06-11 07:57 | CP.PCM.CON ---
History of Present Illness - History of Present Illness History of Present Illness: Surgery 51 y/o female with MHx significant for HTN and HLD who comes in with CP. Pt had cardiac catheterization yesterday at [facility]. She tolerated the procedure well. Vascular surgery was consulted to evaluate for hematoma on R groin site. Denies f/c/cough/n/v/d/pain. Pt is ambulating freely without difficulty. MHx: HTN, HLD SHx: cardiac cath yesterday Family Hx: Patient unable to provide any family Hx Social Hx: Lives with family, no EtOH, no tobacco Review of Systems - Review of Systems Review of Systems: See HPI Past Patient History - Past Medical History & Family History Past Medical History?: Yes - Past Social History Alcohol: None Drugs: Denies - CARDIAC Hx Hypertension: Yes - PULMONARY Hx Respiratory Disorders: No - NEUROLOGICAL Hx Neurological Disorder: No - HEENT Hx HEENT Problems: No - RENAL Hx Chronic Kidney Disease: No - ENDOCRINE/METABOLIC Hx Endocrine Disorders: No - HEMATOLOGICAL/ONCOLOGICAL Hx Blood Disorders: No Hx AIDS: No Hx Human Immunodeficiency Virus (HIV): No - INTEGUMENTARY Hx Dermatological Problems: No - MUSCULOSKELETAL/RHEUMATOLOGICAL Hx Musculoskeletal Disorders: No Hx Falls: No - GASTROINTESTINAL Hx Gastrointestinal Disorders: No - GENITOURINARY/GYNECOLOGICAL Hx Genitourinary Disorders: No - PSYCHIATRIC Hx Psychophysiologic Disorder: No Hx Substance Use: No - SURGICAL HISTORY Hx Surgeries: Yes Hx Hysterectomy: Yes Hx Tubal Ligation: Yes - ANESTHESIA Hx Anesthesia: Yes Hx Anesthesia Reactions: No Meds Home Medications: Home Medication List Medication Instructions Recorded Confirmed Type Aspirin 81 mg PO DAILY #30 tab.chew 06/07/17 Rx Atorvastatin [Lipitor] 20 mg PO DAILY #30 tab 06/07/17 Rx amLODIPine [Norvasc] 5 mg PO DAILY #30 tab 06/07/17 Rx hydroCHLOROthiazide [Hydrodiuril] 25 mg PO DAILY #30 tab 06/07/17 Rx Allergies/Adverse Reactions: Allergies Allergy/AdvReac Type Severity Reaction Status Date / Time No Known Allergies Allergy Verified 06/06/17 19:27 - Medications Medications: Current Medications Atorvastatin Calcium (Lipitor) 40 mg PO DAILY [facility] Last Admin: 06/10/17 09:09 Dose: 40 mg Metoprolol Tartrate (Lopressor) 50 mg PO Q12@0100,1300 [facility] Last Admin: 06/11/17 01:21 Dose: 50 mg Nitroglycerin (Nitrostat Sl Tab) 0.4 mg SL Q5M PRN PRN Reason: chest pain Physical Exam - Constitutional Appears: No Acute Distress - Head Exam Head Exam: ATRAUMATIC, NORMAL INSPECTION, NORMOCEPHALIC - Eye Exam Eye Exam: EOMI, Normal appearance, PERRL Pupil Exam: NORMAL ACCOMODATION, PERRL - ENT Exam ENT Exam: Mucous Membranes Moist, Normal Exam - Neck Exam Neck exam: Positive for: Normal Inspection - Respiratory Exam Respiratory Exam: Clear to Auscultation Bilateral, NORMAL BREATHING PATTERN - Cardiovascular Exam Cardiovascular Exam: REGULAR RHYTHM - GI/Abdominal Exam GI & Abdominal Exam: Normal Bowel Sounds, Soft. absent: Tenderness - Exam Exam: NORMAL INSPECTION - Extremities Exam Extremities exam: Positive for: full ROM, normal capillary refill, pedal pulses present. Negative for: calf tenderness, joint swelling, pedal edema, tenderness Additional comments: R groin has dressing. Mild erythema. NT. Mild induration. - Back Exam Back exam: NORMAL INSPECTION - Neurological Exam Neurological exam: Alert, CN II-XII Intact, Normal Gait, Oriented x3, Reflexes Normal - Psychiatric Exam Psychiatric exam: Normal Affect, Normal Mood - Skin Skin Exam: Dry, Intact, Normal Color, Warm Results - Vital Signs Recent Vital Signs: Last Vital Signs Temp 98.0 F 06/11/17 05:13 Pulse 66 06/11/17 05:13 Resp 18 06/11/17 05:13 BP 138/89 06/11/17 05:13 Pulse Ox 98 06/11/17 05:13 - Labs Result Diagrams: 06/11/17 05:25 06/11/17 05:25 Labs: Laboratory Results - last 24 hr 06/10/17 06/11/17 06/11/17 19:50 05:25 05:25 WBC 10.7 15.9 H RBC 5.02 4.79 Hgb 14.8 14.0 Hct 44.4 42.7 MCV 88.4 89.2 MCH 29.6 29.3 MCHC 33.4 32.8 L RDW 13.3 13.8 Plt Count 289 283 Sodium 141 Potassium 4.0 Chloride 106 Carbon Dioxide 24 Anion Gap 15 BUN 13 Creatinine 0.7 Est GFR ( Amer) > 60 Est GFR (Non-Af Amer) > 60 Random Glucose 122 H Calcium 9.9 Assessment & Plan - Assessment and Plan (Free Text) Assessment: POD 1 s/p cardiac cath r/o hematoma of R groin Area Non tender. Mild eythema and induration. Palpable pulses. -We will monitor -No emergent surgical intervention at this time. -Medical management Will DW attending
[2017-06-11 16:01] VITALS: BP 120/72; PULSE 58; RESP 16; TEMP 97.3; O2SAT 97
--- NOTE | 2017-06-11 16:19 | US ---
PROCEDURE: HISTORY: ff up right groin hematoma patient had recent PICC catheterization in the right groin. COMPARISON: None TECHNIQUE: Ultrasound scanning with color Doppler applied FINDINGS: In the right groin a complex mostly hypoechoic parallel nonvascular collection is noted consistent with a right groin hematoma this measures 6 6 cm wide with an AP dimension 1.2 cm by approximately 3.3 cm. No vascularity within it is seen. IMPRESSION: Findings consistent with a right groin hematoma in this patient with a right groin recent catheterization. No vascularity is seen.
--- NOTE | 2017-06-11 16:53 | CP.PCM.DIS ---
Provider - Provider Date of Admission: 06/07/17 00:01 Attending physician: Margot Martinez MD Consults: Cardio : Dr Navarro Vascular Surgery Time Spent in preparation of Discharge (in minutes): 35 Diagnosis - Discharge Diagnosis (1) Chest pain Status: Acute (2) HTN (hypertension) Status: Chronic (3) Hypokalemia Status: Acute (4) Groin hematoma Status: Acute Hospital Course - Lab Results Lab Results: Most Recent Lab Values WBC 15.9 K/uL (4.8-10.8) H 06/11/17 05:25 RBC 4.79 Mil/uL (3.80-5.20) 06/11/17 05:25 Hgb 14.0 g/dL (12.0-16.0) 06/11/17 05:25 Hct 42.7 % (34.0-47.0) 06/11/17 05:25 MCV 89.2 fl (81.0-99.0) 06/11/17 05:25 MCH 29.3 pg (27.0-31.0) 06/11/17 05:25 MCHC 32.8 g/dL (33.0-37.0) L 06/11/17 05:25 RDW 13.8 % (11.5-14.5) 06/11/17 05:25 Plt Count 283 K/uL (130-400) 06/11/17 05:25 MPV 8.8 fl (7.2-11.7) 06/06/17 19:59 Neut % (Auto) 57.8 % (50.0-75.0) 06/06/17 19:59 Lymph % (Auto) 32.5 % (20.0-40.0) 06/06/17 19:59 [place] % (Auto) 5.5 % (0.0-10.0) 06/06/17 19:59 Eos % (Auto) 3.4 % (0.0-4.0) 06/06/17 19:59 Baso % (Auto) 0.8 % (0.0-2.0) 06/06/17 19:59 Neut # 5.2 K/uL (1.8-7.0) 06/06/17 19:59 Lymph # 2.9 K/uL (1.0-4.3) 06/06/17 19:59 [place] # 0.5 K/uL (0.0-0.8) 06/06/17 19:59 Eos # 0.3 K/uL (0.0-0.7) 06/06/17 19:59 Baso # 0.1 K/uL (0.0-0.2) 06/06/17 19:59 PT 11.4 Seconds (9.8-13.1) 06/09/17 05:30 INR 1.1 (0.9-1.2) 06/09/17 05:30 Sodium 141 mmol/l (132-148) 06/11/17 05:25 Potassium 4.0 MMOL/L (3.6-5.0) 06/11/17 05:25 Chloride 106 mmol/L (98-107) 06/11/17 05:25 Carbon Dioxide 24 mmol/L (22-30) 06/11/17 05:25 Anion Gap 15 (10-20) 06/11/17 05:25 BUN 13 mg/dl (7-17) 06/11/17 05:25 Creatinine 0.7 mg/dL (0.7-1.2) 06/11/17 05:25 Est GFR ( Amer) > 60 06/11/17 05:25 Est GFR (Non-Af Amer) > 60 06/11/17 05:25 Random Glucose 122 mg/dL (65-105) H 06/11/17 05:25 Calcium 9.9 mg/dL (8.4-10.2) 06/11/17 05:25 Total Bilirubin 0.4 mg/dl (0.2-1.3) 06/06/17 19:59 AST 27 U/L (14-36) 06/06/17 19:59 ALT 34 U/L (9-52) 06/06/17 19:59 Alkaline Phosphatase 100 U/L (38-126) 06/06/17 19:59 Troponin I < 0.0120 ng/mL (0.00-0.120) 06/08/17 07:00 Total Protein 8.4 G/DL (6.3-8.2) H 06/06/17 19:59 Albumin 4.8 g/dL (3.5-5.0) 06/06/17 19:59 Globulin 3.5 gm/dL (2.2-3.9) 06/06/17 19:59 Albumin/Globulin Ratio 1.4 (1.0-2.1) 06/06/17 19:59 Triglycerides 71 mg/DL (0-149) 06/07/17 08:53 Cholesterol 188 mg/dL (0-199) 06/07/17 08:53 LDL Cholesterol Direct 104 mg/dL (0-129) 06/07/17 08:53 HDL Cholesterol 62 MG/DL (30-70) 06/07/17 08:53 Urine Color Straw (YELLOW) 06/06/17 20:00 Urine Clarity Clear (Clear) 06/06/17 20:00 Urine pH 7.0 (5.0-8.0) 06/06/17 20:00 Ur Specific [place] 1.006 (1.003-1.030) 06/06/17 20:00 Urine Protein 100 mg/dL (NEGATIVE) 06/06/17 20:00 Urine Glucose (UA) Neg mg/dL (Normal) 06/06/17 20:00 Urine Ketones Negative mg/dL (NEGATIVE) 06/06/17 20:00 Urine Blood Small (NEGATIVE) 06/06/17 20:00 Urine Nitrate Negative (NEGATIVE) 06/06/17 20:00 Urine Bilirubin Negative (NEGATIVE) 06/06/17 20:00 Urine Urobilinogen 0.2-1.0 mg/dL (0.2-1.0) 06/06/17 20:00 Ur Leukocyte Esterase Small Margie/uL (Negative) 06/06/17 20:00 Urine RBC (Auto) 8 /hpf (0-3) H 06/06/17 20:00 Urine Microscopic WBC 10 /hpf (0-5) H 06/06/17 20:00 Ur Squamous Epith Cells 3 /hpf (0-5) 06/06/17 20:00 Urine Bacteria Rare (<OCC) 06/06/17 20:00 - Hospital Course Hospital Course: 51 y/o female with PMHx significant for HTN and HLD came in with CP. Patient had run out of her BP meds . Her CP started the day before presentation to the left side, pressure like,accompanied by some SOB, but no radiation or palpitations. In ER her BP was found to be 188 / 140. Patient admitted to telemetry for close monitoring and started on ASA and BP meds. Troponins were negative but her EKG showed active T wave inversion in lateral leads. Cardiology consulted - rec Cardiac cath. Cardiac cath done at [facility] by Dr Navarro- Coronaries normal. Post Cardiac Cath the pt developed groin hematoma. ASA and Lovenox d/c. Hematoma followed up by US ( 6x 2x 3 cm) - no increase in size on repeat US. Vascular Surgery consulted- rec no surgical intervention. On re-examination , the patient has no tenderness on the site and hematoma seem to be slight smaller. Chest pain resolved. 1. Chest pain , ACS ruled out pain prob musculoskeletal patient is chest pain free at present trop x 3 negative EKG showed new T wave inversion on lateral leads echo was normal cardiology consulted received ASA, statin, lovenox therapeutic and Beta noah Cardiology - Dr Navarro - did Cardiac cath at [facility] -Coronaries normal 2.Hypertensive emergency BP 180/140 on presentation now BP is controlled not compliant with medications Started Metoprolol 3. Groin hematoma post Cardiac cath Pt was on therapeutic Lovenox and ASA after Cardiac cath , developed hematoma US of Groin done showed 6 cm hematoma, rpt US showed stable hematoma CBC - no drop in H/H Vascular Surgery consulted- no intervention No ASA, no NSAIDs Instructed pt not to do heavy lifting 4. Hypo-K replaced and resolved 4. DVT PPx SCDs lovenox Discharge Exam - Head Exam Head Exam: ATRAUMATIC, NORMAL INSPECTION, NORMOCEPHALIC - Eye Exam Eye Exam: EOMI, Normal appearance, PERRL Pupil Exam: NORMAL ACCOMODATION - ENT Exam ENT Exam: Mucous Membranes Moist, Normal External Ear Exam - Neck Exam Neck exam: Full Rom - Respiratory Exam Respiratory Exam: NORMAL BREATHING PATTERN. absent: Respiratory Distress - Cardiovascular Exam Cardiovascular Exam: REGULAR RHYTHM, +S1, +S2 - GI/Abdominal Exam GI & Abdominal Exam: Normal Bowel Sounds, Soft. absent: Tenderness - Extremities Exam Extremities exam: full ROM, normal capillary refill, pedal pulses present Additional comments: Right groin hematoma nontender, pulses palpable - Back Exam Back exam: FULL ROM, NORMAL INSPECTION. absent: CVA tenderness (L), CVA tenderness (R) - Neurological Exam Neurological exam: Alert, CN II-XII Intact, Oriented x3, Reflexes Normal - Psychiatric Exam Psychiatric exam: Normal Affect, Normal Mood - Skin Skin Exam: Dry, Normal Color, Warm Discharge Plan - Discharge Medications Prescriptions: Atorvastatin [Lipitor] 10 mg PO DIN #30 tab Docusate Sodium [Colace] 100 mg PO BID #30 capsule Metoprolol Succinate XL [Toprol XL] 25 mg PO BRK #30 tab - Follow Up Plan Condition: GOOD Disposition: HOME/ ROUTINE Additional Instructions: appt at the FP clinic next wk Needs rpt Groin Ultrasound next wk no heavy lifting no Aspirin, no NSAIDs for now Referrals: [facility] [Outside]
--- NOTE | 2017-06-11 18:25 | PN ---
SUBJECTIVE: The patient did develop right groin hematoma yesterday following the completion of cardiac catheterization at the time of right groin compression. Right iliofemoral angiography performed prior to the sheath removal revealed arterial access below the common femoral bifurcation, but there were no complications noted or any extravasation at the time of the right femoral angiogram. Coronary circulation was angiographically unremarkable. The right femoral ultrasound which was performed in the cardiac shift lab technician yesterday revealed 6.2 x 2 x 4.7 cm hematoma with soft tissue edema. I discussed the case with Dr. Caputo at that time, and I recommended vascular surgical evaluation and obtain a stat CBC. Upon arrival to the [facility], the patient is currently comfortable. She denies any right groin pain. The patient never had any compromise of her distal foot circulation. PHYSICAL EXAMINATION: VITAL SIGNS: Blood pressure 126/79, heart rate 68, temperature 98.3, respirations 20. HEENT: Normocephalic. CHEST: Clear. HEART: S1 and S2 regular. EXTREMITIES: Right groin hematoma. No thrill or bruit and good distal pulses. LABORATORY DATA: Hemoglobin and hematocrit 14 and 42.7 with slight drop totaling 1 g compared to the admitting hemoglobin; however, compared to yesterday, the drop was 0.8 g. Today's SMA-7 is within normal limits except for glucose of 122. Right lower extremity ultrasound was done again today but the report is still pending. ASSESSMENT: 1. Chest pain, myocardial infarction ruled out with normal coronary circulation. 2. Right groin hematoma. 3. Hypertension. RECOMMENDATIONS: Continue current Lipitor and Lopressor. Aspirin as well as Lovenox will be discontinued. I will follow the venous ultrasound results. Donaldo Navarro MD
== END 2017-06-11 17:41 | disposition home or self-care (01) | DRG 287 ==
LOC: H.ER 19:22 → H.ERHOLD 21:06 → OBSVTOIN 06-07 00:01 → H.TEL 06-07 00:22
PROVIDERS: ADMIT Internal Medicine; ATTEND Internal Medicine
PROC: 4A023N7 Measurement of Cardiac Sampling and Pressure, Left Heart, Percutaneous Approach (ICD-10-PCS; principal; 2017-06-10)
PROC: B201YZZ Plain Radiography of Multiple Coronary Arteries using Other Contrast (ICD-10-PCS; 2017-06-10)
PROC: B205YZZ Plain Radiography of Left Heart using Other Contrast (ICD-10-PCS; 2017-06-10)
DX: R07.89 Other chest pain (principal); I10 Essential (primary) hypertension; I16.1 Hypertensive emergency; L76.32 Postprocedural hematoma of skin and subcutaneous tissue following other procedure; E78.5 Hyperlipidemia, unspecified; Z91.14 Patient's other noncompliance with medication regimen; E87.6 Hypokalemia; Y84.0 Cardiac catheterization as the cause of abnormal reaction of the patient, or of later complication, without mention of misadventure at the time of the procedure

== ENCOUNTER 2018-07-22 21:53 | Emergency (ER) | payer SELFPAY ==
[2018-07-22] MEDS ORDERED: Naproxen 500 MG TAB PO ONE ×2 (22:28→23:20)
--- NOTE | 2018-07-22 22:31 | ED PDOC ---
HPI: Female Pain Time Seen by Provider: 07/22/18 22:08 Chief Complaint (Nursing): Abdominal Pain Chief Complaint (Provider): dysuria History Per: Patient History/Exam Limitations: no limitations Onset/Duration Of Symptoms: Days (2) Current Symptoms Are (Timing): Still Present Quality Of Discomfort: Burning, "Pain" Associated Symptoms: Back Pain. denies: Fever, Chills, Nausea, Vomiting Additional Complaint(s): 52 y/o female presents for evaluation of dysuria x 2 days. Associated lower abdominal pain radiatiating to lower back. Denies fever, nausea/vomiting, hematuria, vaginal bleeding/discharge. No medication taken for relief thus far. Past Medical History Reviewed: Historical Data, Nursing Documentation, Vital Signs Vital Signs: Last Vital Signs Temp 98.3 F 07/22/18 22:01 Pulse 88 07/22/18 22:01 Resp 18 07/22/18 22:01 BP 174/107 H 07/22/18 22:01 Pulse Ox 100 07/22/18 22:01 - Medical History PMH: HTN, Hyperlipidemia Denies: HIV, Chronic Kidney Disease - Family History Family History: States: Unknown Family Hx - Living Arrangements Living Arrangements: With Family - Home Medications Home Medications: Ambulatory Orders Medication Instructions Recorded Atorvastatin [Lipitor] 10 mg PO DIN #30 tab 06/11/17 Docusate Sodium [Colace] 100 mg PO BID #30 capsule 06/11/17 Metoprolol Succinate XL [Toprol XL] 25 mg PO BRK #30 tab 06/11/17 Nitrofurantoin Macrocrystals 100 mg PO BID #13 cap 07/23/18 [Macrobid] Phenazopyridine HCl [Pyridium] 100 mg PO TID PRN #5 tab 07/23/18 - Allergies Allergies/Adverse Reactions: Allergies Allergy/AdvReac Type Severity Reaction Status Date / Time PORK Allergy ITCHING Verified 07/22/18 21:59 Review of Systems ROS Statement: Except As Marked, All Systems Reviewed And Found Negative Genitourinary Female: Positive for: Dysuria, Pelvic Pain Physical Exam - Reviewed Nursing Documentation Reviewed: Yes Vital Signs Reviewed: Yes - Physical Exam Appears: Positive for: Well, Non-toxic, No Acute Distress Head Exam: Positive for: ATRAUMATIC, NORMAL INSPECTION, NORMOCEPHALIC Skin: Positive for: Normal Color Cardiovascular/Chest: Positive for: Regular Rate, Rhythm Respiratory: Positive for: Normal Breath Sounds Gastrointestinal/Abdominal: Positive for: Tenderness (diffuse lower discomfort; no flank tenderness) Back: Positive for: Muscle Spasm (b/l lspine paravertebral tenderness). Negative for: L CVA Tenderness, R CVA Tenderness - ECG O2 Sat by Pulse Oximetry: 100 - Progress ED Course And Treament: u/a, c&s, naproxen PO On re-eval, patient states she is feeling better. Patient educated on findings, discharged with rx macrobid, pyridium (doses given in ED) Advised follow up PMD within 2-3 days Fluids Return precautions given Disposition - Clinical Impression Clinical Impression: UTI (urinary tract infection) - Patient ED Disposition Is Patient to be Admitted: No Counseled Patient/Family Regarding: Studies Performed, Diagnosis, Need For Followup, Rx Given - Disposition Referrals: [facility] [Outside] Disposition: Routine/Home Disposition Time: 01:04 Condition: IMPROVED Prescriptions: Nitrofurantoin Macrocrystals [Macrobid] 100 mg PO BID #13 cap Phenazopyridine HCl [Pyridium] 100 mg PO TID PRN #5 tab PRN Reason: Urinary Discomt Instructions: Urinary Tract Infections in Adults Print Language: LUXEMBOURGISH
[2018-07-23 00:25] LABS: URINE BACTERIA RARE (<OCC); URINE BILIRUBIN NEGATIVE (NEGATIVE); URINE BLOOD MODERATE (NEGATIVE); URINE CLARITY SLIGHTY-CLOUDY (Clear); URINE COLOR STRAW (YELLOW); URINE GLUCOSE (UA) NEG (Normal); URINE LEUKOCYTE ESTERASE LARGE Leu/uL (Negative); URINE PROTEIN NEGATIVE (NEGATIVE); URINE UROBILINOGEN 0.2-1.0 mg/dL (0.2-1.0)
[2018-07-23 02:04] VITALS: BP 156/91; PULSE 82; RESP 16; TEMP 98; O2SAT 98
== END 2018-07-23 01:28 | disposition home or self-care (01) ==
LOC: H.ER 21:53
DX: N39.0 Urinary tract infection, site not specified (principal); E78.5 Hyperlipidemia, unspecified; I10 Essential (primary) hypertension

== ENCOUNTER 2018-11-17 09:34 | Emergency (ER) | payer OTHER ==
[2018-11-17 09:44] VITALS: BMI 34.3
--- NOTE | 2018-11-17 10:14 | ED PDOC ---
HPI: Female Pain Time Seen by Provider: 11/17/18 09:51 Chief Complaint (Nursing): Female Genitourinary Chief Complaint (Provider): Pelvic Pain History Per: Patient History/Exam Limitations: no limitations Onset/Duration Of Symptoms: Other (3 weeks) Current Symptoms Are (Timing): Still Present Associated Symptoms: denies: Fever, Nausea, Diarrhea, Urinary Symptoms Additional Complaint(s): 53 year old female with PMHx of HTN presents to the ED for an evaluation of left sided pelvic pain onset for 3 weeks associated with clear and foul smelling discharge. Patient has menopause since 3 years. Otherwise, she denies vaginal bleeding, nausea, diarrhea, frequency, dysuria or fever. PMD: No family provider Abnormal Vaginal Bleeding: No Past Medical History Reviewed: Historical Data, Nursing Documentation, Vital Signs Vital Signs: Last Vital Signs Temp 97.1 F L 11/17/18 09:42 Pulse 74 11/17/18 09:42 Resp 16 11/17/18 09:42 BP 157/95 H 11/17/18 09:42 Pulse Ox 100 11/17/18 09:42 - Medical History PMH: HTN, Hyperlipidemia Denies: HIV, Chronic Kidney Disease - Family History Family History: States: Unknown Family Hx - Social History Current smoker - smoking cessation education provided: No Alcohol: None Drugs: Denies - Home Medications Home Medications: Ambulatory Orders Medication Instructions Recorded Atorvastatin [Lipitor] 10 mg PO DIN #30 tab 06/11/17 Docusate Sodium [Colace] 100 mg PO BID #30 capsule 06/11/17 Metoprolol Succinate XL [Toprol XL] 25 mg PO BRK #30 tab 06/11/17 Nitrofurantoin Macrocrystals 100 mg PO BID #13 cap 07/23/18 [Macrobid] Phenazopyridine HCl [Pyridium] 100 mg PO TID PRN #5 tab 07/23/18 Ciprofloxacin HCl [Cipro] 500 mg PO BID #6 tablet 07/29/18 Metronidazole [Metrogel] 60 gm TP DAILY #5 appful 11/17/18 Sulfamethoxazole/Trimethoprim 1 tab PO BID #20 tab 11/17/18 [Bactrim DS 800 mg-160 mg] - Allergies Allergies/Adverse Reactions: Allergies Allergy/AdvReac Type Severity Reaction Status Date / Time PORK Allergy ITCHING Verified 11/17/18 09:55 Review of Systems ROS Statement: Except As Marked, All Systems Reviewed And Found Negative Constitutional: Negative for: Fever, Chills Gastrointestinal: Negative for: Nausea, Vomiting, Diarrhea Genitourinary Female: Positive for: Pelvic Pain. Negative for: Dysuria, Frequency, Incontinence, Vaginal Bleeding Physical Exam - Reviewed Nursing Documentation Reviewed: Yes Vital Signs Reviewed: Yes - Physical Exam Appears: Positive for: Non-toxic, No Acute Distress Head Exam: Positive for: ATRAUMATIC, NORMAL INSPECTION, NORMOCEPHALIC Skin: Positive for: Normal Color, Warm, Dry. Negative for: Rash Eye Exam: Positive for: EOMI, Normal appearance, PERRL Neck: Positive for: Normal, Painless ROM, Supple. Negative for: Decreased ROM Cardiovascular/Chest: Positive for: Regular Rate, Rhythm. Negative for: Murmur Respiratory: Positive for: Normal Breath Sounds. Negative for: Decreased Breath Sounds, Respiratory Distress Gastrointestinal/Abdominal: Positive for: Normal Exam, Soft. Negative for: Te nderness Pelvic Exam: Positive for: No Masses, Discharge (scant clear ), Tender Adnexa (mild, left-side), Other (Mucosa erythemetous anteriorly but lesions or vesicles noted). Negative for: Active Bleeding Back: Positive for: Normal Inspection Extremity: Positive for: Normal ROM. Negative for: Tenderness, Pedal Edema, Def ormity Neurologic/Psych: Positive for: Alert, Oriented (x3). Negative for: Motor/Sensory Deficits - Laboratory Results Result Diagrams: 11/17/18 10:05 11/17/18 10:05 - ECG O2 Sat by Pulse Oximetry: 100 (RA) Pulse Ox Interpretation: Normal Medical Decision Making Medical Decision Making: Time: 955 Impression: 53 y/o female with pelvic pain. Will obtain pelvic US, urine, and blood work Plan: --CMP --ED urine dipstick --CBC w/ Differential --Transvaginal US --Reevaluation Scribe Attestation: Documented by Ej Moon, acting as a scribe for Boyd Pate MD. Provider Scribe Attestation: All medical record entries made by the Scribe were at my direction and personally dictated by me. I have reviewed the chart and agree that the record accurately reflects my personal performance of the history, physical exam, medical decision making, and the department course for this patient. I have also personally directed, reviewed, and agree with the discharge instructions and disposition. Disposition - Clinical Impression Clinical Impression: Vaginitis, UTI (urinary tract infection) - Patient ED Disposition Is Patient to be Admitted: No Counseled Patient/Family Regarding: Studies Performed, Diagnosis, Need For Followup, Rx Given - Disposition [facility] Disposition: Routine/Home Disposition Time: 13:48 Condition: FAIR Prescriptions: Metronidazole [Metrogel] 60 gm TP DAILY #5 appful Sulfamethoxazole/Trimethoprim [Bactrim DS 800 mg-160 mg] 1 tab PO BID #20 tab Instructions: Urinary Tract Infections in Adults, Vaginitis Forms: [facility] (Azeri) Print Language: URDU
[2018-11-17 10:22] LABS: BASO # 0.1 K/uL (0.0-0.2); EOS # 0.3 K/uL (0.0-0.7); HEMOGLOBIN 14.8 g/dL (12.0-16.0); LYMPH # 2.3 K/uL (1.0-4.3); LYMPH % 34.9 % (20.0-40.0); MEAN CORPUSCULAR HEMOGLOBIN 30.3 pg (27.0-31.0); MEAN CORPUSCULAR HGB CONC 33.3 g/dL (33.0-37.0); MEAN PLATELET VOLUME 8.7 fl (7.2-11.7); MONO # 0.5 K/uL (0.0-0.8); MONO % 6.9 % (0.0-10.0); NEUT # 3.5 K/uL (1.8-7.0); NEUT % 52.2 % (50.0-75.0); NRBC % 0.1 % (0.0-0.0); RBC 4.87 Mil/uL (3.80-5.20); RED CELL DISTRIBUTION WIDTH 13.7 % (11.5-14.5); WHITE BLOOD COUNT 6.7 K/uL (4.8-10.8)
[2018-11-17 10:49] LABS: ALB/GLOB RATIO 1.3 (1.0-2.1); ALBUMIN 4.8 g/dL (3.5-5.0); ALT/SGPT 18 U/L (9-52); AST/SGOT 28 U/L (14-36); BLOOD UREA NITROGEN 9 mg/dl (7-17); CALCIUM 10.1 mg/dL (8.4-10.2); GFR NON-AFRICAN AMERICAN > 60
[2018-11-17 11:10] LABS: SQUAMOUS EPITHIAL 17 /hpf (0-5); URINE BACTERIA FEW (<OCC); URINE BILIRUBIN NEGATIVE (NEGATIVE); URINE BLOOD MODERATE (NEGATIVE); URINE CLARITY CLOUDY (Clear); URINE COLOR YELLOW (YELLOW); URINE GLUCOSE (UA) NEG (NEGATIVE); URINE LEUKOCYTE ESTERASE LARGE Leu/uL (Negative); URINE PROTEIN NEGATIVE (NEGATIVE); URINE UROBILINOGEN 0.2-1.0 mg/dL (0.2-1.0); WBC CLUMPS OCC /hpf
--- NOTE | 2018-11-17 13:33 | US ---
Date of service: 11/17/2018 HISTORY: Left sided pelvic pain COMPARISON: None available. TECHNIQUE: Transvaginal pelvic ultrasound was performed with longitudinal and transverse images submitted for interpretation. FINDINGS: UTERUS: Measures 5.8 x 5.0 x 3.2 cm. Normal in size and appearance, retroverted. No fibroid or other mass lesion seen. ENDOMETRIUM: Measures 2.3 mm in diameter. Unremarkable. CERVIX: No cervical abnormality identified. RIGHT OVARY: Measures 3.0 x 1.9 x 1.7 cm. No solid mass. Normal flow. LEFT OVARY: Measures 2.5 x 1.7 x 1.8 cm. No solid mass. Normal flow. FREE FLUID: No significant free fluid noted. OTHER FINDINGS: None. IMPRESSION: Unremarkable pelvic ultrasound.
[2018-11-17 14:09] VITALS: BP 142/98; PULSE 70; RESP 18; TEMP 97.8; O2SAT 97
== END 2018-11-17 14:10 | disposition home or self-care (01) ==
LOC: H.ER 09:34
DX: N76.0 Acute vaginitis (principal); N39.0 Urinary tract infection, site not specified; I10 Essential (primary) hypertension; E78.5 Hyperlipidemia, unspecified

== ENCOUNTER 2019-01-16 10:17 | Emergency (ER) | payer OTHER ==
[2019-01-16 10:18] VITALS: BMI 34.3
[2019-01-16 10:36] VITALS: RESP 18; TEMP 97; O2SAT 99
--- NOTE | 2019-01-16 11:01 | ED PDOC ---
Lower Extremity Pain/Injury Time Seen by Provider: 01/16/19 10:36 Chief Complaint (Nursing): Lower Extremity Problem/Injury Chief Complaint (Provider): Lower Extremity Problem/Injury History Per: Patient History/Exam Limitations: no limitations Onset/Duration Of Symptoms: Days (x2) Current Symptoms Are (Timing): Still Present Additional Complaint(s): Patient is 53 y/o female with a PMHx of HTN and hyperlipidemia who presents to the ED for evaluation of bilateral leg pain caused by inflammation and swelling at and below the knee ongoing for the past two days. Patient denies chest pain and shortness or breath. Patient has not taken any medication for relief. PCP; None Provided Past Medical History Reviewed: Historical Data, Nursing Documentation, Vital Signs Vital Signs: Last Vital Signs Temp 97 F L 01/16/19 10:34 Pulse 86 01/16/19 10:34 Resp 18 01/16/19 10:34 BP 159/101 H 01/16/19 10:34 Pulse Ox 99 01/16/19 10:34 - Medical History PMH: HTN, Hyperlipidemia Denies: HIV, Chronic Kidney Disease - Surgical History Other surgeries: Tubal Ligation - Family History Family History: States: Unknown Family Hx - Home Medications Home Medications: Ambulatory Orders Medication Instructions Recorded Atorvastatin [Lipitor] 10 mg PO DIN #30 tab 06/11/17 Docusate Sodium [Colace] 100 mg PO BID #30 capsule 06/11/17 Metoprolol Succinate XL [Toprol XL] 25 mg PO BRK #30 tab 06/11/17 Nitrofurantoin Macrocrystals 100 mg PO BID #13 cap 07/23/18 [Macrobid] Phenazopyridine HCl [Pyridium] 100 mg PO TID PRN #5 tab 07/23/18 Ciprofloxacin HCl [Cipro] 500 mg PO BID #6 tablet 07/29/18 Metronidazole [Metrogel] 60 gm TP DAILY #5 appful 11/17/18 Sulfamethoxazole/Trimethoprim 1 tab PO BID #20 tab 11/17/18 [Bactrim DS 800 mg-160 mg] Naproxen 500 mg PO BID #30 tab 01/16/19 - Allergies Allergies/Adverse Reactions: Allergies Allergy/AdvReac Type Severity Reaction Status Date / Time PORK Allergy ITCHING Verified 01/16/19 10:34 Review of Systems ROS Statement: Except As Marked, All Systems Reviewed And Found Negative Cardiovascular: Negative for: Chest Pain Respiratory: Negative for: Shortness of Breath Musculoskeletal: Positive for: Leg Pain (and swelling bilaterally at and below knee) Physical Exam - Reviewed Nursing Documentation Reviewed: Yes Vital Signs Reviewed: Yes - Physical Exam Appears: Positive for: No Acute Distress Head Exam: Positive for: ATRAUMATIC, NORMAL INSPECTION, NORMOCEPHALIC Skin: Positive for: Normal Color, Warm, DRY Eye Exam: Positive for: EOMI, Normal appearance, PERRL Neck: Positive for: Normal, Painless ROM, Supple Cardiovascular/Chest: Positive for: Regular Rate, Rhythm. Negative for: Murmur Respiratory: Positive for: Normal Breath Sounds. Negative for: Respiratory Distress Extremity: Positive for: Normal ROM (with pain on flexion and extension), Other (varicose veins). Negative for: Pedal Edema, Deformity, Swelling (or crepitus or ecchymosis) Neurological/Psych: Positive for: Alert, Oriented (x3) - ECG O2 Sat by Pulse Oximetry: 99 (RA) Pulse Ox Interpretation: Normal - Progress Re-evaluation Time: 15:27 Condition: Re-examined, Improved Medical Decision Making Medical Decision Making: Time: 1056 Impression: Bilateral Leg Pain DDx includes by not limited to DVT and Varicose Veins. Plan: Duplex Lower Extremity Vein Bilaterally [US] Toradol 30 mg IM Time: 1503 FINDINGS: COMMON FEMORAL VEIN: Right CFV: Unremarkable. Left CFV: Unremarkable. SUPERFICIAL FEMORAL VEIN: Right SFV: Unremarkable. Left SFV: Unremarkable. POPLITEAL VEIN: Right Popliteal: Unremarkable. Left Popliteal: Unremarkable. POSTERIOR TIBIAL VEIN: Right PTV: Unremarkable. Left PTV: Unremarkable. OTHER FINDINGS: None. IMPRESSION: No sonographic evidence of deep venous thrombosis bilateral lower extremities. Scribe Attestation: Documented by Alexei Crawley, acting as a scribe for Stephanie Silvestre MD. Provider Scribe Attestation: All medical record entries made by the Scribe were at my direction and personally dictated by me. I have reviewed the chart and agree that the record accurately reflects my personal performance of the history, physical exam, medical decision making, and the department course for this patient. I have also personally directed, reviewed, and agree with the discharge instructions and disposition. Disposition - Clinical Impression Clinical Impression: Leg pain, bilateral - Patient ED Disposition Is Patient to be Admitted: No Counseled Patient/Family Regarding: Studies Performed, Diagnosis, Need For Followup - Disposition Referrals: [facility] [Outside] Disposition: Routine/Home Disposition Time: 15:27 Condition: GOOD Additional Instructions: GLADYS PHELAN, thank you for letting us take care of you today. Your provider was Stephanie Silvestre MD and you were treated for B/L LEG PAIN. The emergency medical care you received today was directed at your acute symptoms. If you were prescribed any medication, please fill it and take as directed. It may take several days for your symptoms to resolve. Return to the Emergency Department if your symptoms worsen, do not improve, or if you have any other problems. Please contact your doctor or call one of the physicians/clinics you have been referred to that are listed on the Patient Visit Information form that is included in your discharge packet. Bring any paperwork you were given at discharge with you along with any medications you are taking to your follow up visit. Our treatment cannot replace ongoing medical care by a primary care provider outside of the emergency department. Thank you for allowing the [facility] team to be part of your care today. Prescriptions: Naproxen 500 mg PO BID #30 tab Instructions: Muscle and Bone Pain (DC) Print Language: GHANAIAN
--- NOTE | 2019-01-16 15:06 | US ---
Date of service: 01/16/2019 PROCEDURE: Bilateral lower extremity venous duplex Doppler. HISTORY: bilaterael leg pain and swelling COMPARISON: None available. TECHNIQUE: Bilateral common femoral, superficial femoral, popliteal and posterior tibial veins were evaluated. Flow was assessed with color Doppler, compressibility, assessment of phasic flow and augmentation response. FINDINGS: COMMON FEMORAL VEIN: Right CFV: Unremarkable. Left CFV: Unremarkable. SUPERFICIAL FEMORAL VEIN: Right SFV: Unremarkable. Left SFV: Unremarkable. POPLITEAL VEIN: Right Popliteal: Unremarkable. Left Popliteal: Unremarkable. POSTERIOR TIBIAL VEIN: Right PTV: Unremarkable. Left PTV: Unremarkable. OTHER FINDINGS: None. IMPRESSION: No sonographic evidence of deep venous thrombosis bilateral lower extremities.
[2019-01-16 15:39] VITALS: BP 136/80; PULSE 72
== END 2019-01-16 15:29 | disposition home or self-care (01) ==
LOC: H.ER 10:17
DX: M79.661 Pain in right lower leg (principal); M79.662 Pain in left lower leg; E78.5 Hyperlipidemia, unspecified; I10 Essential (primary) hypertension
CPT/HCPCS: 93970; 96372; 99283; J1885